=== PATIENT | female | born 1980 | race Caucasian/White ===

== ENCOUNTER → 2016-10-13 | Outpatient (CLI) | payer BC | END | disposition home or self-care (01) | LOC: RAD.S 14:42 | DX: I83.91 Asymptomatic varicose veins of right lower extremity (principal) ==

== ENCOUNTER 2016-11-06 07:29 | Day surgery (SDC) | payer BC ==
[~2016-11-06] VITALS: Ht 160 cm; Wt 69.5 kg
== END 2016-11-06 11:11 | disposition home or self-care (01) ==
LOC: RAD.S 07:29 → EDSTATUS 09:00 → RAD.S 09:00
PROC: 065P3ZZ Destruction of Right Saphenous Vein, Percutaneous Approach (ICD-10-PCS; principal; 2016-11-06)
DX: I87.2 Venous insufficiency (chronic) (peripheral) (principal)

== ENCOUNTER → 2016-11-09 | Outpatient (CLI) | payer BC | END | disposition home or self-care (01) | LOC: RAD.S 13:30 | DX: I87.2 Venous insufficiency (chronic) (peripheral) (principal); Z98.890 Other specified postprocedural states ==

== ENCOUNTER 2016-11-13 11:54 | Day surgery (SDC) | payer BC ==
[~2016-11-13] VITALS: Ht 160 cm; Wt 96.3 kg
== END 2016-11-13 15:21 | disposition home or self-care (01) ==
LOC: RAD.S 11:54 → EDSTATUS 13:00 → RAD.S 13:00
PROC: 065R3ZZ (ICD-10-PCS; principal; 2016-11-13)
DX: I87.2 Venous insufficiency (chronic) (peripheral) (principal)

== ENCOUNTER → 2016-11-16 | Outpatient (CLI) | payer BC | END | disposition home or self-care (01) | DX: I87.2 Venous insufficiency (chronic) (peripheral) (principal); Z98.890 Other specified postprocedural states ==